=== PATIENT | male | born 1980 | race American Indian/Alaskan Native ===

== ENCOUNTER 2018-05-14 13:36 | Emergency (ER) | payer OTHER, MEDICARE ==
[2018-05-14 14:26] VITALS: BP 120/80
[2018-05-14] MEDS ORDERED: MOTRIN PO ONE (17:33)
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
--- NOTE | 2018-05-14 19:09 | XRay Report ---
FINAL REPORT EXAM: XR SPINE LUMBOSACRAL 2-3V HISTORY: low back pain TECHNIQUE: Lumbar spine 3 views PRIORS: None. FINDINGS: Vertebral bodies demonstrate normal height and alignment. The disc spaces are within normal limits. There is no evidence of spondylolisthesis. Transverse and spinous processes are intact SI joints are unremarkable. IMPRESSION: Negative lumbar spine series
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
--- NOTE | 2018-05-14 19:15 | XRay Report ---
FINAL REPORT EXAM: XR SHOULDER 2+V RT HISTORY: shoulder pain TECHNIQUE: Three views left shoulder PRIORS: None. FINDINGS: No fractures are identified. No dislocation seen. The acromioclavicular joint is intact. Adjacent bony and soft tissue structures are unremarkable. IMPRESSION: Negative shoulder series
== END 2018-05-14 20:29 | disposition home or self-care (01) ==
LOC: ED 13:36
DX: S39.012A Strain of muscle, fascia and tendon of lower back, initial encounter (principal); S13.4XXA Sprain of ligaments of cervical spine, initial encounter; S76.012A Strain of muscle, fascia and tendon of left hip, initial encounter; S46.911A Strain of unspecified muscle, fascia and tendon at shoulder and upper arm level, right arm, initial encounter; F17.200 Nicotine dependence, unspecified, uncomplicated; V89.2XXA Person injured in unspecified motor-vehicle accident, traffic, initial encounter; Y93.89 Activity, other specified; Y92.89 Other specified places as the place of occurrence of the external cause; Y99.8 Other external cause status
CPT/HCPCS: 72100; 99283